=== PATIENT | female | born 2000 | race Two or more races ===

== ENCOUNTER 2020-06-25 19:50 | Outpatient (CLI) | payer OTHER ==
[2020-06-25] MEDS ORDERED: ADULT LOW DOSE81 M1 PO (23:59)
[2020-06-25] MEDS ORDERED: ATABEX DHA 200200 MG PO (23:59)
[2020-06-26] MEDS ORDERED: CEFADROXIL500 MG PO (07:07)
== END 2020-06-26 09:53 | disposition home or self-care (01) ==
LOC: OBS/DEL 19:50
PROVIDERS: ATTEND Obstetrics & Gynecology
DX: O23.43 Unspecified infection of urinary tract in pregnancy, third trimester (principal)

== ENCOUNTER 2020-06-30 14:45 | Inpatient (IN) | payer OTHER ==
[~2020-06-30] VITALS: Ht 152.4 cm; Wt 104.3 kg
[~2020-06-30 14:45] MED LIST: ADULT LOW DOSE81 M1 PO; ATABEX DHA 200200 MG PO; CEFADROXIL500 MG PO
[2020-07-09] MEDS ORDERED: PRENATAL + DHA1 EAC1 (08:19)
== END 2020-07-11 10:42 | disposition home or self-care (01) | DRG 787 ==
LOC: LDR 07-08 05:28 → OB/GYN 07-08 05:28
PROVIDERS: ADMIT Obstetrics & Gynecology; ATTEND Obstetrics & Gynecology
PROC: 10907ZC Drainage of Amniotic Fluid, Therapeutic from Products of Conception, Via Natural or Artificial Opening (ICD-10-PCS; 2020-07-08)
PROC: 4A1HXFZ Monitoring of Products of Conception, Cardiac Rhythm, External Approach (ICD-10-PCS; 2020-07-08)
PROC: 10D00Z1 Extraction of Products of Conception, Low, Open Approach (ICD-10-PCS; principal; 2020-07-08 17:00)
DX: O62.1 Secondary uterine inertia (principal); N39.0 Urinary tract infection, site not specified; O77.0 Labor and delivery complicated by meconium in amniotic fluid; Z3A.40 40 weeks gestation of pregnancy; Z37.0 Single live birth; Z20.828 Contact with and (suspected) exposure to other viral communicable diseases

== ENCOUNTER 2023-06-03 13:49 | Emergency (ER) | payer OTHER ==
[~2023-06-03] VITALS: Ht 149.9 cm; Wt 99.8 kg
[~2023-06-03 13:49] MED LIST changes: +PRENATAL + DHA1 EAC1
[2023-06-03 15:12] LABS: CALCIUM 9.3 mg/dL (8.5-10.1); CREATININE SERUM 0.53 mg/dL (0.55-1.02); GFR 141.72; POTASSIUM 3.79 mEq/L (3.5-5.1)
[2023-06-03 15:16] LABS: INR 1.16; PARTIAL THROMBOPLASTIN TIME 25.4 SECONDS (22.0-34.0)
[2023-06-03 16:01] LABS: HEMATOCRIT 32.3 % (36.0-45.00); HEMOGLOBIN 10.9 g/dL (12.0-15.00); MEAN CELL VOLUME 81.7 fL (80.00-100.00); MEAN CORPUSCULAR HEMOGLOBIN 27.6 pg (27.00-32.0); MEAN CORPUSCULAR HGB CONC 33.7 g/dl (32.0-36.0); PLATELET COUNT 289 K/uL (150-450); RED BLOOD COUNT 3.95 M/uL (4.00-6.00); RED CELL DISTRIBUTION WIDTH 15.1 % (11.5-14.5)
== END 2023-06-03 19:46 | disposition home or self-care (01) ==
LOC: ER 13:49
PROVIDERS: Emergency Medicine
DX: O03.9 Complete or unspecified spontaneous abortion without complication (principal); Z88.8 Allergy status to other drugs, medicaments and biological substances